=== PATIENT | male | born 1975 | race Caucasian/White ===

== ENCOUNTER 2019-11-02 12:54 | Outpatient (REF) | payer OTHER, SELFPAY ==
[2019-11-02 21:19] LABS: ALT 75 U/L (16-63); AST 32 U/L (15-37); Calculated LDL 90 mg/dL (<100); Cholesterol 152 mg/dL (<200); HDL Cholesterol 43 mg/dL (40-60); Triglyceride 98 mg/dL (<150)
== END 2019-11-02 13:14 ==
LOC: LBN 12:54
PROVIDERS: Visit Provider Nurse Practitioner Family
DX: Z00.00 Encounter for general adult medical examination without abnormal findings (principal); E78.5 Hyperlipidemia, unspecified
CPT/HCPCS: 80061; 84450; 84460

== ENCOUNTER 2021-07-23 16:35 | Outpatient (REF) | payer OTHER, SELFPAY ==
[2021-07-23 12:12] LABS: Source Nasal/Nares
[2021-07-23 13:05] LABS: COVID-19 PCR Negative (Negative)
== END 2021-07-23 16:36 | disposition home or self-care (01) ==
LOC: LBN 16:35
PROVIDERS: Visit Provider Nurse Practitioner Family
DX: Z20.822 Contact with and (suspected) exposure to COVID-19 (principal)
CPT/HCPCS: 87635

== ENCOUNTER 2022-07-02 08:57 | Outpatient (REF) | payer OTHER, SELFPAY ==
[2022-07-02 15:05] LABS: ALT 69 U/L (16-63); AST 33 U/L (15-37); Albumin 4.5 g/dL (3.4-5.0); Alkaline Phosphatase 63 U/L (46-116); Anion Gap 6.6 mmol/L (3-11); BUN 16 mg/dL (7-18); Bilirubin, Total 0.4 mg/dL (0.2-1.0); CO2 29.4 mmol/L (21.0-32.0); CREATININE 1.1 mg/dL (0.70-1.30); Calcium 9.4 mg/dL (8.5-10.1); Calculated LDL 86 mg/dL (<100); Chloride 104 mmol/L (98-107); Cholesterol 151 mg/dL (<200); Estimated GFR 83.84 (mL/min/1.73m2); Glucose 110 mg/dL (74-106); HDL Cholesterol 51 mg/dL (40-60); Potassium 4.6 mmol/L (3.5-5.1); Sodium 140 mmol/L (136-145); Total Protein 7.9 g/dL (6.4-8.2); Triglyceride 71 mg/dL (<150)
== END 2022-07-02 08:58 | disposition home or self-care (01) ==
LOC: NCHCN 08:57
PROVIDERS: Visit Provider Nurse Practitioner Family
DX: Z00.00 Encounter for general adult medical examination without abnormal findings (principal); E78.5 Hyperlipidemia, unspecified
CPT/HCPCS: 80053; 80061

== ENCOUNTER 2022-12-25 07:07 | Day surgery (SDC) | payer OTHER, SELFPAY ==
--- NOTE | 2022-12-25 06:11 | ANES.PREOP_ITS ---
General Info Date of Service Date Performed: 12/25/22 Height: 5 ft 11 in Weight: 101.151 kg Body Mass Index (BMI): 31.1 Surgical Procedure: Operation Date: 12/25/22 08:55 Proposed Procedure Side Surgeon p Vasectomy Cortes Campbell MD Meds Allergies and Home Medications Allergies Allergy/AdvReac Type Severity Reaction Status Date / Time No Known Allergies Allergy Verified 12/25/22 07:36 Home Medication Medication Instructions Recorded atorvastatin 40 mg tablet 40 mg PO DAILY 11/25/19 naproxen 500 mg tablet 500 mg PO BID 11/25/19 famotidine 10 mg tablet (Acid 10 mg PO DAILY 06/26/22 Commissioning Agent (famotidine)) Current Visit Medications: Current Medications Generic Name Dose Route Start Last Admin Trade Name Freq PRN Reason Stop Dose Admin Ringer's Solution 1,000 mls @ 80 mls/hr 12/25/22 06:00 IV 01/23/23 23:59 INFUSION FRANCA IV Miscellaneous Supplies 1 each 12/25/22 06:00 Iv Access IV 01/23/23 23:59 DIRECTED FRANCA Sodium Chloride 0 ml 12/25/22 06:00 Normal Saline Flush 10 Ml Syr IV 01/23/23 23:59 PRN PRN Sodium Chloride 0 ml 12/25/22 06:00 Normal Saline 10 Ml Vial IJ 01/23/23 23:59 DIRECTED PRN Sterile Water 0 ml 12/25/22 06:00 Water,Injection,Sterile 10 Ml Vial IJ 01/23/23 23:59 DIRECTED PRN PFSH Active Problems Active Problems: Problem Status Onset Code Hyperlipidemia E78.5 Pilonidal cyst with abscess L05.01 Encounter for screening for other viral diseases Z11.59 Surgical History Surgical History [place] teeth extracted Tobacco Smoking/Tobacco Use Status: Never Alcohol Alcohol Intake: never Substance Use Substance use: Never Substance use type: does not use Vital Signs and Lab Results Vital Signs Most Recent Vital Signs in EMR: Temp Pulse Resp BP Pulse Ox 36.2 C L 74 16 142/103 H 98 12/25/22 07:38 12/25/22 07:38 12/25/22 07:38 12/25/22 07:38 12/25/22 07:38 Lab Results Blood Type / Crossmatch: No Data to Display Complete Blood Count: No Data to Display Complete Metabolic Panel: No Data to Display Liver Function Panel: No Data to Display Coagulation Panel: No Data to Display Cardiac Panel: No Data to Display Arterial Blood Gas: No Data to Display Venous Blood Gas: No Data to Display Pancreas Panel: No Data to Display Thyroid Panel: No Data to Display Infectious Disease: No Data to Display Blood Cultures: No Data to Display Toxicology Panel: No Data to Display Anesthesia Assessment and Plan Anesthesia History Personal History: No History of Anesthesia Complications Family History: No Family History of Anesthesia Complications Exercise Tolerance Exercise Tolerance: Metabolic Equivalents>4 Cardiac & Pulmonary Exam Cardiac Exam: Normal S1/S2 Heart Sounds Pulmonary Exam: Clear Bilateral Breath Sounds Implantable Cardiac Device Does patient have a Pacemaker or an ICD?: No Airway Exam Known Difficult Airway: No Mallampati Class: 4 Mouth Opening: Normal (> 3cm) Thyromental Distance: Greater than 3 cm Neck Range of Motion: Full ROM Neck Circumference: Thick Teeth Condition: Normal Dentition ASA Classification ASA Score: ASA 2 Emergency Case?: No NPO Status NPO Status: NPO Clears >2 hours, Solids >8 hours Anesthesia Plan Resuscitation Status: Full Code Anesthesia Technique: General Anesthesia Airway Planned: Natural Airway Monitors Used: Standard Monitors Preoperative Comments:: 47 yo male for vasectomy. Sig PMHx: Denies major.
--- NOTE | 2022-12-25 07:23 | HPE_ITS ---
Date of service: 12/25/22 Time of Service: 08:54 Assessment and Plan Assessment and plan (1) Encounter for vasectomy: Status: Acute Assessment and plan: We will complete his vasectomy with additional anesthesia on board History of Present Illness History of Present Illness Chief Complaint: Elective sterilization Narrative: This is a 47-year-old gentleman who is and has 2 children. He and his partner not interested in additional pregnancies. We attempted to do a vasectomy in the office earlier this week but I was unable to secure the left vas deferens and my clamp. He presents now for completion of the vasectomy with additional anesthesia on board. Review of Systems Narrative: No fevers or chills No vision change or dysphasia No diabetes or thyroid dysfunction No shortness of breath, cough or hemoptysis No chest pain or palpitations No nausea, vomiting, hepatitis, ulcers No seizures, strokes or peripheral neuropathy No bleeding disorders or anemia No gout PFSH All Active Problems (Updated 12/25/22 @ 08:46 by Cortes Campbell MD) Encounter for vasectomy (Acute) Hyperlipidemia (Acute) Pilonidal cyst with abscess (Acute) Encounter for screening for other viral diseases (Acute) Surgical History [place] teeth extracted Social History Smoking/Tobacco Use Status: Never Smoking risk assessment performed?: Yes Alcohol Intake: never Drug use: Never Substance use type: does not use Housing: house Do you feel safe at home: Yes Do you feel safe in your relationship?: Yes Meds Allergies and Home Medications Allergies Allergy/AdvReac Type Severity Reaction Status Date / Time No Known Allergies Allergy Verified 12/25/22 07:36 Home Medications Medication Instructions Recorded Confirmed Type atorvastatin 40 mg tablet 40 mg PO DAILY 11/25/19 12/25/22 History naproxen 500 mg tablet 500 mg PO BID 11/25/19 12/25/22 History famotidine 10 mg tablet (Acid 10 mg PO DAILY 06/26/22 12/25/22 History Night Guard (famotidine)) Exam Const General: cooperative Neck Neck: supple Resp Effort & Inspection: normal respiratory effort Auscultation: clear to auscultation bilaterally Cardio Rate: regular rate Rhythm: regular rhythm GI Palpation: soft Neuro General: patient alert, patient awake and patient oriented x3 Time Spent Time spent with Patient: <40 minutes Time was spent: other
[2022-12-25 07:38] VITALS: BP 142/103; PULSE 74; RESP 16; TEMP 36.2; O2SAT 98
[2022-12-25 07:50] VITALS: BMI 31.1
[2022-12-25] MEDS: Lactated Ringers 1,000 ML 80 ML IV (07:55)
[2022-12-25] MEDS: Bupivacaine 0.5% Pres-Free 30 ML VIAL (09:38)
--- NOTE | 2022-12-25 09:55 | W.PM.DSUDISC ---
Date of service: 12/25/22 Time of Service: 09:56 Discharge Plan Disposition Patient Disposition: Home Condition: Stable Discharge Details Reason For Visit: vasectomy Attending Provider: Cortes Campbell Primary Care Provider: Nyasia Morrow Home Meds and New Rx's Prescriptions: No Action atorvastatin 40 mg tablet 40 mg PO DAILY naproxen 500 mg tablet 500 mg PO BID famotidine [Acid Catering Director (famotidine)] 10 mg tablet 10 mg PO DAILY Discharge Instructions Additional Instructions: ice pack to scrotum (bag of frozen peas works well) while awake for 48 hours wear tight supportive undergarments for 48 hours to help decrease postprocedural swelling no ejaculation for 7 days no lifting over 10 pounds for 48 hours followup 12 weeks for semen sample (supplies available from my office) may use OTC tylenol and NSAIds for discomfort - my office can send in prescription for tramadol if needed Activity:: see additional instructions Remove Dressings/Wound Care:: 24 hours Shower/Bathe:: 24 hours Diet:: As Tolerated Discharge Orders Discharge Orders: Discharge Order (Routine); Ordered 12/25/22 Ordered By: Cortes Campbell DS: Diagnosis Discharge Diagnosis (1) Encounter for vasectomy: Status: Acute
--- NOTE | 2022-12-25 10:09 | ROE_ITS ---
Date of service: 12/25/22 Time of Service: 10:09 Operative Note Operative Note DATE OF PROCEDURE: 12/25/22 PRE-OP DIAGNOSIS: Elective sterilization POST-OP DIAGNOSIS: same PROCEDURE: vasectomy SURGEON: Cortes Campbell ANESTHESIA TYPE: Local By Surgeon and General:No Airway Refer to Anesthesia Record ESTIMATED BLOOD LOSS: 10 PATHOLOGY: none sent COMPLICATIONS: None Patient was transported to: same day Patient's condition: stable Implants: none Indications: This is a 47-year-old gentleman who has 2 children. He and his partner are not interested in additional pregnancies. We attempted a vasectomy in the office with local anesthesia alone. I was unable to secure the left vas deferens and a clamp, so we elected to complete the vasectomy in the operating room with additional anesthesia on board. Findings: Normal-appearing vas deferens Procedure Description: The patient was brought to the operating room on 12/25/2022. After successful induction of general anesthesia, he was placed in the supine position. His genitalia was prepped and draped. We infiltrated the midline scrotal skin with quarter percent Marcaine. We then opened his midline skin incision and were able to palpate the left vas deferens. I attempted to grasp the vas deferens with an Allis clamp, but I was not successful. I then opened the dartos muscle on the left side and delivered the left testis through the incision. I was then able to visualize the vas deferens. I incised the connective tissue over the vas and in this manner, I was then able to grasp the vas and an Allis clamp. This was then dissected free from surrounding tissue. A 2 to 3 cm section of vas was then excised sharply. Each cut end of the vas was cauterized using a needle tip Bovie. The more proximal end of the Monet was buried back beneath the adventitia with a simple interrupted 4-0 chromic suture. The testis was delivered back within the left hemiscrotum and the dartos muscle was reapproximated using a running 4-0 chromic suture. The right vas deferens was easily palpable and grasped within the Allis clamp. The vas was dissected free from its surrounding tissue. Again 2 to 3 cm section of vasa was excised. Each cut into the vasa was cauterized and the more proximal and was buried back beneath the adventitia using a 4-0 chromic suture. Neither the vasa specimens were sent to pathology. This is the current recommendation of the [place] [employer]. The wound was inspected for hemostasis. The subcuticular tissue was reapproximated using simple interrupted 4-0 chromic sutures. The skin was then closed with Dermabond and a Xeroform dressing was applied. The patient tolerated the procedure well with no complications. He was taken back to the day surgery unit in stable condition.
[2022-12-25 10:11] VITALS: BP 125/91; PULSE 75; RESP 14; TEMP 36.4; O2SAT 98
[2022-12-25 10:47] VITALS: BP 121/97; PULSE 68; RESP 16; TEMP 36.6; O2SAT 98
--- NOTE | 2022-12-25 16:02 | W.ANESPOSTOP ---
Postoperative Evaluation Date, Time and Location Date Performed: 12/25/22 Time Performed: 16:03 Patient Location: Day Surgery Unit (time of this post is not reflective on when it was done. ) Vital Signs Most Recent Imported Vital Signs: Most Recent Vital Signs Temp Pulse Resp BP Pulse Ox 36.6 C 68 16 121/97 H 98 12/25/22 10:47 12/25/22 10:47 12/25/22 10:47 12/25/22 10:47 12/25/22 10:47 Pain Score Most Recent Pain Score: Most Recent Pain Score Pain Level 2 12/25/22 10:47 Assessment Mental Status: Awake (Alert & Oriented to Patient Baseline) Airway and Respiratory Function: Patent airway with normal (patient baseline) respiratory exam Cardiovascular Function: Hemodynamically Stable Hydration Status: Adequately Hydrated Nausea & Vomiting: No Nausea or Vomiting Pain: Pain is tolerable per patient Peripheral Nerve Block: Patient did not receive a nerve block
== END 2022-12-25 11:04 | disposition home or self-care (01) ==
PROVIDERS: PCP Nurse Practitioner Family; Visit Provider Urology
PROC: (CPT 55250; principal; 2022-12-25 08:45)
DX: Z30.2 Encounter for sterilization (principal)
CPT/HCPCS: 55250; J2001; J2405; J2704

== ENCOUNTER 2024-07-21 08:23 | Outpatient (REF) | payer OTHER, SELFPAY ==
[2024-07-21 17:36] LABS: ALT 56 U/L (16-63); AST 37 U/L (15-37); Albumin 4.5 g/dL (3.4-5.0); Alkaline Phosphatase 83 U/L (46-116); Anion Gap 7.5 mmol/L (3-11); BUN 20 mg/dL (7-18); Bilirubin, Total 0.6 mg/dL (0.2-1.0); CO2 28.5 mmol/L (21.0-32.0); Calculated LDL 79 mg/dL (<100); Chloride 103 mmol/L (98-107); Cholesterol 141 mg/dL (<200); Estimated GFR 92.84 (mL/min/1.73m2); Glucose 105 mg/dL (74-106); HDL Cholesterol 49 mg/dL (>or=40); Potassium 4.6 mmol/L (3.5-5.1); Sodium 139 mmol/L (136-145); Total Protein 7.8 g/dL (6.4-8.2); Triglyceride 66 mg/dL (<150)
== END 2024-07-21 08:24 | disposition home or self-care (01) ==
LOC: NCHCN 08:23
PROVIDERS: PCP Nurse Practitioner Family; Visit Provider Nurse Practitioner Family
DX: Z00.00 Encounter for general adult medical examination without abnormal findings (principal); E78.5 Hyperlipidemia, unspecified
CPT/HCPCS: 80053; 80061